=== PATIENT | male | born 1955 | race Native Hawaiian/Other Pacific Islander ===

== ENCOUNTER 2016-06-12 19:40 | Emergency (ER) | payer OTHER ==
[~2016-06-12] VITALS: Ht 188 cm; Wt 86.2 kg
[~2016-06-12 19:40] MED LIST: HEARTBURN150 MG PO; LORA0.5T17 PO; METOPROLOL25 M1 PO; TRAM50TA PO
[2016-06-12 20:36] LABS: PLATELET COUNT 201 K/uL (142-355)
[2016-06-12 20:41] LABS: POTASSIUM 3.2 mmol/L (3.6-5.2); SODIUM 140 mmol/L (136-145)
[2016-06-12 21:14] VITALS: BP 154/76; TEMP 98
== END 2016-06-12 21:19 | disposition home or self-care (01) ==
LOC: ED 19:40
DX: R56.9 Unspecified convulsions (principal); F19.10 Other psychoactive substance abuse, uncomplicated
CPT/HCPCS: 36415; 80053; 80307; 80320; 81000; 85027; 99283; G0479